=== PATIENT | male | born 1995 | race Two or more races ===

== ENCOUNTER 2020-12-17 14:21 | Emergency (ER) | payer SELFPAY ==
[~2020-12-17] VITALS: Ht 175.3 cm; Wt 55.0 kg
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
[2020-12-17 14:35] VITALS: BP 109/58
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
[2020-12-17] MEDS: oxyCODONE/APAP 5/325 1 TAB TABLET PO ONE (14:53)
[2020-12-17] MEDS ORDERED: HYDR-2769 PO (15:00)
== END 2020-12-17 16:20 | disposition home or self-care (01) ==
LOC: ER 14:21
DX: S42.011A Anterior displaced fracture of sternal end of right clavicle, initial encounter for closed fracture (principal); M25.511 Pain in right shoulder; W18.39XA Other fall on same level, initial encounter; Y93.9 Activity, unspecified; Y92.89 Other specified places as the place of occurrence of the external cause; Y99.8 Other external cause status
CPT/HCPCS: 73000; 99283; A4565